=== PATIENT | female | born 1930 | race Caucasian/White ===

== ENCOUNTER 2016-10-23 02:59 | Observation (INO) | payer OTHER ==
--- NOTE | ~2016-10-23 | EKG ---
PATIENT: VALE LEES UNIT #: [id number] Ventricular Rate: 101 BPM Atrial Rate: 101 BPM P-R Interval: 214 ms QRS Duration: 102 ms Q-T Interval: 372 ms QTC Calculation(Bezet): 482 ms P [place]: 49 degrees Calculated R [place]: -7 degrees Calculated T [place]: 42 degrees Diagnosis Line: Sinus tachycardia with 1st degree A-V block Diagnosis Line: Nonspecific ST and T wave abnormality Diagnosis Line: Abnormal ECG Baseline wander Diagnosis Line: No previous ECGs available Diagnosis Line: Confirmed by ELIN MOJICA MD ([id number]) on 10/24/2016 Diagnosis Line: 11:14:54 AM INTERPRETING MD: YUNIOR OSEI
--- NOTE | ~2016-10-23 | CR72 ---
[facility] A Service of [facility] RADIOLOGY TEXT RESULTS PATIENT: VALE LEES LOCATION: [facility] 335- : 29 UNIT #: [id number] AGE: [address]: Denice Solis MD SEX: F ORDER DR: [id number] [facility] [address]. [place], [place] [address] [id number] MR#: [id number] Acc #: [id number] NAME: VALE LEES. : 1930 SEX: F STUDY DATE/TIME: 10/23/2016 2:58 [facility]: [facility] STUDY DESCRIPTION: CR Chest Single View Portable Attending Physician: Denice Solis M.D. Ordering Physician: Candido Rossi M.D. Primary Care Physician: Danika Milton M.D. MEDICAL IMAGING REPORT This report is preliminary unless electronic signature is present EXAM Portable AP view of the chest. COMPARISON February 18, 2008. INDICATIONS 86-year-old female with dyspnea and body aches for 2 days. FINDINGS There is grossly stable marked dextroscoliosis of the thoracic spine. There is no evidence of pneumothorax, pleural effusion or acute airspace disease. A skin fold artifact is noted over the left lower chest. There is apparent dense calcification of the mitral valve annulus. There are calcified granulomas in the left hilar region. Normal heart size. 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 There is mild levoscoliosis of the upper lumbar spine. IMPRESSION 1. No acute radiographic abnormality of the chest. 2. Dense calcifications of the mitral valve annulus. 3. Scoliosis. Chronic dysmorphic appearance of the humeral heads, perhaps reflecting avascular necrosis Dictated by... Alvarez Whaley M.D. THIS IS AN ELECTRONICALLY VERIFIED REPORT Alvarez Whaley M.D. at 10/25/2016 7:03 AM Marlena TD: 10/23/2016 09:15 JOB #: [id number] [facility] A Service of [facility] RADIOLOGY TEXT RESULTS PATIENT: VALE LEES LOCATION: [facility] 335-01 : 29 UNIT #: [id number] AGE: [address]: Denice Solis MD SEX: F ORDER DR: MEDICAL IMAGING REPORT COPY
--- NOTE | ~2016-10-23 | DS ---
Unit #: [id number] #: [id number] Patient: VALE LEES [id number] [address] [place], [place] [address] [id number] I MR#: [id number] NAME: VALE LEES. ROOM: 335 Age: 86 Sex: F Admission Date: 10/23/2016 : 1930 Discharge Date: 10/24/2016 Attending Physician: Denice Solis M.D. Primary Care Physician: Danika Milton M.D. DISCHARGE SUMMARY PRINCIPAL DIAGNOSES 1. Hyponatremia/hypovolemic. 2. Acute hypoxic respiratory failure, now resolved. 3. Acute bronchitis. 4. Bronchospasm. 5. Omxi-oj-dyavmcoz mitral regurgitation. 6. Lnqt-kw-ghjitamb tricuspid regurgitation. 7. Hypertension. 8. White-coat hypertension. 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 PROCEDURES 1. Chest x-ray on October 23, 2016, with dense calcifications of mitral valve annulus. No other acute findings noted. 2. A two-dimensional echocardiogram on October 23, 2016, with ejection fraction of 50% to 55%. The patient had zmox-pr-cmalgbom tricuspid regurgitation and atmp-fe-pyztcnzk mitral regurgitation. Normal right ventricular systolic pressure of 40 mmHg and normal left ventricular size. CLINICAL HISTORY AND HOSPITAL COURSE Ms. Lees is a very nice 86-year-old female, who presents to the emergency department with shortness of breath and cough. Please refer to H and P for further details. The patient was found to be mildly hypoxic in the emergency department with O2 saturations in the mid 80s. Sodium was also found to be low at 123. The patient was subsequently admitted. In regard to patient's respiratory failure, this resolved after a nebulizer treatment. Chest x-ray was unremarkable. She was placed on low-dose IV steroids in addition to empiric antibiotics and today oxygen saturations have completely normalized and she has had no evidence of wheezing. We are going to transition to oral steroids and continue doxycycline as an outpatient. In regard to patient's hyponatremia, she was placed on IV fluids and on day of discharge, sodium has corrected from 123 to 133. She does not appear to be drinking excessive amounts of fluid at home after discussion with son and I suspect her hyponatremia was secondary to poor solute intake given she felt poorly. This can be followed up by Dr. Milton as an outpatient. Unit #: [id number] #: [id number] Patient: VALE LEES The patient is otherwise clinically stable and can be discharged home today. The patient has had some significantly elevated blood pressures while hospitalized here. I did check orthostatics and while not orthostatic, the patient does have a drop in systolic blood pressure upon sitting to standing. I hear her sitting blood pressure is 175/77 and standing was 159/91. The patient's son informs me, however, patient has significant white coat hypertension and this may be a contributing factor. Thus, I am going to not make any adjustments in her blood pressure meds while here. Given her advanced age, this would also be a contributing factor. This can be followed up by Dr. Milton. DISCHARGE CONDITION Stable. DISCHARGE STATUS Discharge to home. DISCHARGE MEDICATIONS 1. Doxycycline 100 mg p.o. b.i.d. for five days. 2. Prednisone 10 mg tablets four tablets daily for two days, three tablets for two days, two tablets for two days, one tablet for two days, then discontinue. 3. Ventolin inhaler one to two puffs every four hours p.r.n. for shortness of breath. 4. Hydromet syrup 5 mL p.o. q.6 hours p.r.n. for cough. 5. Atenolol 25 mg b.i.d. DISCHARGE INSTRUCTIONS 1. The patient was instructed to follow a heart healthy diet. 2. She can increase her activity as tolerated, and she will continue to use her walker at all times. FOLLOWUP The patient will follow up with Dr. Milton in two weeks, can re-evaluate blood pressure at that time and recheck sodium level. Dictated by... Denice Solis M.D. SERGEI/isa TD: 10/25/2016 09:19 JOB #: [id number] DISCHARGE SUMMARY X Denice Solis MD DISCHARGE SUMMARY
--- NOTE | ~2016-10-23 | HP ---
Unit #: [id number] #: [id number] Patient: VALE LEES [id number] [address] [place], [place] [address] [id number] E MR#: [id number] NAME: VALE LEES ROOM: Age: 86 Sex: F Admission Date: 10/23/2016 : 1930 Attending Physician: Candido Rossi M.D. Primary Care Physician: Danika Milton M.D. HISTORY AND PHYSICAL CHIEF COMPLAINT Bronchitis, acute respiratory failure, and hyponatremia. HISTORY This pleasant, 86-year-old female with hypertension and DJD is admitted for hyponatremia. Patient states that she was well until about two weeks prior to admission when she developed a nonproductive deep cough. She saw her primary care physician again yesterday and was given prescriptions for amoxicillin, Ventolin inhaler, and a cough syrup. She has been nauseous for the past two days, only drinking water. States that last evening she awoke choking with nausea and shaking. EMS was called and the patient was noted to have an O2 sat in the mid 80s. She was noted to have bronchospasm and was better after a nebulizer was given. Current chest x-ray is negative, but her sodium is 123. She does not take diuretics. In the ER, she was given 60 mg of prednisone. PAST MEDICAL HISTORY 1. Hypertension. 2. DJD. 3. Left total hip replacement. 4. Left total knee replacement. 5. Appendectomy. ALLERGIES To sulfa. HOME MEDICATIONS 1. Ventolin inhaler. 2. Hydromet cough syrup. 3. Amoxicillin 250 mg t.i.d. started yesterday. 4. Atenolol 25 mg b.i.d. FAMILY HISTORY Noncontributory given patient's age. SOCIAL HISTORY The patient lives with her son. She is a lifelong nonsmoker, seldom drinks alcohol. REVIEW OF SYSTEMS Notable for a cough and shortness of breath last evening after choking episode, hypertension, abovementioned surgeries, nausea, and poor p.o. Unit #: [id number] #: [id number] Patient: VALE LEES intake. All other systems were reviewed and are negative. PHYSICAL EXAMINATION GENERAL APPEARANCE: Pleasant, 86-year-old female who is coughing frequently, but otherwise is in no acute distress. VITAL SIGNS: Temperature 97.7; pulse 92; respirations 16; initial blood pressure 202/77, but current blood pressure is 145/66; and O2 saturation is 98% on room air. HEENT: Eyes: PERRLA. Extraocular muscles are intact. Pharynx: Benign. NECK: Supple without adenopathy or thyromegaly. CHEST: Clear. CARDIAC: Normal S1 and S2 with a soft systolic murmur. ABDOMEN: Bowels sounds are present. No hepatosplenomegaly, tenderness, or masses. EXTREMITIES: Without C, C, or E. Pedal pulses are present. NEUROLOGIC: Patient is awake, alert, and oriented. Cranial nerves are intact. Equal strength throughout. DIAGNOSTIC STUDIES LABORATORY: Hematocrit 37.9 and normal white count and platelet count. Negative cardiac markers. SMA-12: Glucose 148, sodium 123, chloride 90, CO2 21. BNP 131. IMAGING: Chest x-ray: No acute disease. CARDIOVASCULAR: EKG: Sinus tachycardia, rate 101. Left axis deviation. Somewhat poor R wave progression. First degree AV block noted. ASSESSMENT 1. Bronchitis with bronchospasm and acute hypoxic respiratory failure, now better after a nebulizer was given by ambulance. 2. Likely hypovolemic hyponatremia. Patient has been drinking water, but not taking p.o. for the past two days. 3. Hypertension. PLANS 1. Doxycycline, steroid taper, and continue Ventolin and cough suppressant. 2. Normal saline IV fluids and check TSH and urine sodium. 3. DVT prophylaxis. 4. Will obtain an echo given murmur. 5. Further workup depending on above. 6. 1. Dictated by Ivette Gates/pc TD: 10/23/2016 06:04 JOB #: [id number] Unit #: [id number] #: [id number] Patient: VALE LEES HISTORY AND PHYSICAL X Arlin Devine MD HISTORY AND PHYSICAL
[~2016-10-23 02:59] MED LIST: ASPIRIN PO; DARVOCET-N 1001 TAB PO; PARAFON FORTE500 MG PO; [UNRECOGNIZED DRUG - OTHER] PO
[2016-10-23] MEDS ORDERED: TENORMIN25 MG PO (03:02)
[2016-10-23] MEDS ORDERED: ALBUTEROL17 GM INH (03:02)
[2016-10-23] MEDS ORDERED: HYDROMET SYRUP480 ML PO (03:03)
[2016-10-23] MEDS ORDERED: AMOXICILLIN250 MG PO (03:03)
[2016-10-23 03:06] LABS: BASOPHIL# 0.1 X10e3 (0-0.3); BASOPHIL% 0.8 % (0-2.5); DIFF IND NO; EOSINOPHIL# 0.2 X10e3 (0-0.7); EOSINOPHIL% 2.1 % (0.0-7.0); HEMATOCRIT 37.9 % (35.0-45.0); HEMOGLOBIN 12.8 gm/dL (12.0-16.0); LYMPHOCYTE% 21.7 % (17.0-45.0); MEAN CELL VOLUME 89.3 FL (83-96); MEAN CORPUSCULAR HEMOGLOBIN 30.1 PG (28-34); MEAN CORPUSCULAR HGB CONC 33.7 g/dL (30-36); MEAN PLATELET VOLUME 8.3 FL (6.5-11.5); MONOCYTE# 0.9 X10e3 (0-1.0); MONOCYTE% 9.7 % (3.0-12.0); NEUTROPHIL% 65.7 % (40-75); PLATELET COUNT 339 X10e3 (140-420); RED BLOOD COUNT 4.25 X10e (3.90-5.30); RED CELL DISTRIBUTION WIDTH 13.8 % (11.0-15.5); WHITE BLOOD COUNT 9.1 X10e3 (4.0-10.5)
[2016-10-23 03:15] LABS: POC - CKMB 3.3 ng/mL (0.0-7.9); POC - TROPONIN <0.05 ng/mL (<=0.05)
[2016-10-23 03:40] LABS: BLOOD UREA NITROGEN 13 mg/dL (9-23); BUN/CREATININE RATIO 18.57; CALCIUM SERUM 8.8 mg/dL (8.4-10.2); CARBON DIOXIDE 21 mmol/L (22-31); CHLORIDE 90 mmol/L (100-111); CREATININE SERUM 0.7 mg/dL (0.6-1.4); GLOM FILT RATE Estimated ABOVE60 mL/min (>60); GLUCOSE FASTING 148 mg/dL (70-110); POTASSIUM 3.6 mmol/L (3.5-5.1)
[2016-10-23 03:43] LABS: SODIUM 123 mmol/L (135-145)
[2016-10-23 18:45] LABS: BLOOD UREA NITROGEN 8 mg/dL (9-23); CALCIUM SERUM 8.4 mg/dL (8.4-10.2); CARBON DIOXIDE 23 mmol/L (22-31); CHLORIDE 101 mmol/L (100-111); CREATININE SERUM 0.5 mg/dL (0.6-1.4); GLOM FILT RATE Estimated ABOVE60 mL/min (>60); GLUCOSE FASTING 200 mg/dL (70-110); POTASSIUM 4.1 mmol/L (3.5-5.1); SODIUM 127 mmol/L (135-145)
[2016-10-24 00:35] LABS: INFLUENZA A NEG (NEG); INFLUENZA B NEG (NEG)
[2016-10-24 06:15] LABS: BLOOD UREA NITROGEN 9 mg/dL (9-23); CALCIUM SERUM 9.1 mg/dL (8.4-10.2); CARBON DIOXIDE 22 mmol/L (22-31); CHLORIDE 103 mmol/L (100-111); CREATININE SERUM 0.5 mg/dL (0.6-1.4); GLOM FILT RATE Estimated ABOVE60 mL/min (>60); GLUCOSE FASTING 163 mg/dL (70-110); POTASSIUM 4.1 mmol/L (3.5-5.1); SODIUM 133 mmol/L (135-145)
[2016-10-24] MEDS ORDERED: VIBRAMYCIN100 M1 PO (14:08)
[2016-10-24] MEDS ORDERED: PREDNISONE10 MG PO (14:14)
== END 2016-10-24 14:58 | disposition home or self-care (01) ==
LOC: CED 02:59 → CEDOF 05:20 → C3A PCU 09:10
PROVIDERS: Emergency Medicine; Internal Medicine
DX: E87.1 Hypo-osmolality and hyponatremia (principal); E86.1 Hypovolemia; J96.01 Acute respiratory failure with hypoxia; J20.9 Acute bronchitis, unspecified; I08.1 Rheumatic disorders of both mitral and tricuspid valves; I10 Essential (primary) hypertension; Z23 Encounter for immunization; Z96.642 Presence of left artificial hip joint; Z96.652 Presence of left artificial knee joint; Z88.2 Allergy status to sulfonamides; M41.9 Scoliosis, unspecified
CPT/HCPCS: 36415; 71010; 80048; 82553; 83880; 84300; 84443; 84484; 85025; 87804; 90732; 93005; 93306; 94640; 94664; 94760; 96361; 96365; 96374; 96375; 96376; 97162; 97165; 99285; G0009; G0378; G8978-GP; G8979-GP; G8980-GP; G8987-GO; G8988-GO; G8989-GO; J1650; J2405; J2920

== ENCOUNTER 2016-11-23 03:07 | Emergency (ER) | payer OTHER ==
--- NOTE | ~2016-11-23 | EKG ---
PATIENT: VALE LEES UNIT #: [id number] Ventricular Rate: 82 BPM Atrial Rate: 82 BPM P-R Interval: 190 ms QRS Duration: 114 ms Q-T Interval: 430 ms QTC Calculation(Bezet): 502 ms P [place]: 23 degrees Calculated R [place]: -21 degrees Calculated T [place]: 60 degrees Diagnosis Line: Normal sinus rhythm Diagnosis Line: Left ventricular hypertrophy with repolarization Diagnosis Line: abnormality Diagnosis Line: Prolonged QT Diagnosis Line: Abnormal ECG Diagnosis Line: When compared with ECG of 23-OCT-2016 03:03, Diagnosis Line: No significant change was found Diagnosis Line: Confirmed by ELIN MOJICA MD ([id number]) on 12/04/2016 Diagnosis Line: 7:56:30 PM INTERPRETING MD: YUNIOR OSEI
--- NOTE | ~2016-11-23 | CR173 ---
[facility] A Service of [facility] RADIOLOGY TEXT RESULTS PATIENT: VALE LEES LOCATION: SED : 29 UNIT #: [id number] AGE: [address]: Tato Mahajan MD SEX: F ORDER DR: [id number] [place] [id number] E MR#: [id number] Acc #: [id number] NAME: VALE LEES : 1930 SEX: F STUDY DATE/TIME: 11/23/2016 2:56 UNIT: SED ROOM: STUDY DESCRIPTION: CR Knee 3 Views Rt Attending Physician: Tato Mahajan M.D. Ordering Physician: Tato Mahajan M.D. Primary Care Physician: Danika Milton M.D. MEDICAL IMAGING REPORT This report is preliminary unless electronic signature is present. EXAM Right knee, 11/23/2016 HISTORY 86-year-old female with right leg pain status post fall tonight. COMPARISON None FINDINGS 3 views of the right knee demonstrate a displaced spiral oblique fracture of the distal femoral metaphysis. There is at least 2.8 cm posterior displacement of the distal fracture fragment. No evidence of articular surface disruption. There are markedly advanced degenerative changes noted throughout the right knee. Soft tissue swelling around the right knee. IMPRESSION 1. Displaced spiral oblique fracture of the distal femoral metaphysis. There is at least 2.8 cm posterior displacement of the distal fragment. No articular surface disruption or dislocation. 2. Markedly advanced tricompartmental right knee arthrosis. Dictated by... Adam Diaz M.D. THIS IS AN ELECTRONICALLY VERIFIED REPORT Adam Diaz M.D. at 11/23/2016 11:27 PM AMANDEEP/graham TD: 11/23/2016 15:06 JOB #: [id number] [facility] A Service [facility] RADIOLOGY TEXT RESULTS PATIENT: VALE LEES LOCATION: SED : 29 UNIT #: [id number] AGE: [address]: Tato Mahajan MD SEX: F ORDER DR: MEDICAL IMAGING REPORT Page 1 of 1
--- NOTE | ~2016-11-23 | CR72 ---
[facility] A Service of [facility] RADIOLOGY TEXT RESULTS PATIENT: VALE LEES LOCATION: SED : 29 UNIT #: [id number] AGE: [address]: Tato Mahajan MD SEX: F ORDER DR: [id number] [place] [id number] E MR#: [id number] Acc #: [id number] NAME: VALE LEES : 1930 SEX: F STUDY DATE/TIME: 11/23/2016 2:56 UNIT: SED ROOM: STUDY DESCRIPTION: CR Chest Single View Portable Attending Physician: Tato Mahajan M.D. Ordering Physician: Tato Mahajan M.D. Primary Care Physician: Danika Milton M.D. MEDICAL IMAGING REPORT This report is preliminary unless electronic signature is present. EXAM Portable chest 11/23/2016 HISTORY 86-year-old female with shortness of air and cough for 3 days. COMPARISON Chest 10/23/2016. FINDINGS Frontal chest demonstrates clear lungs. No pleural effusion or pneumothorax. Stable mild cardiomegaly. Mediastinum and pulmonary vasculature are unremarkable. Chronic advanced bilateral glenohumeral arthrosis. IMPRESSION Stable mild cardiomegaly. No other acute chest findings. Dictated by... Adam Diaz M.D. THIS IS AN ELECTRONICALLY VERIFIED REPORT Adam Diaz M.D. at 11/23/2016 11:27 PM AMANDEEP/shawna TD: 11/23/2016 15:06 JOB #: [id number] MEDICAL IMAGING REPORT Page 1 of 1
--- NOTE | ~2016-11-23 | CR151 ---
[facility] A Service of [facility] RADIOLOGY TEXT RESULTS PATIENT: VALE LEES LOCATION: SED : 29 UNIT #: [id number] AGE: [address]: Tato Mahajan MD SEX: F ORDER DR: [id number] [place] [id number] E MR#: [id number] Acc #: [id number] NAME: VALE LEES : 1930 SEX: F STUDY DATE/TIME: 11/23/2016 2:56 UNIT: SED ROOM: STUDY DESCRIPTION: CR Hip Min 2 Views Rt Attending Physician: Tato Mahajan M.D. Ordering Physician: Tato Mahajan M.D. Primary Care Physician: Danika Milton M.D. MEDICAL IMAGING REPORT This report is preliminary unless electronic signature is present. EXAM Right hip 11/23/2016 HISTORY 86-year-old female with right hip pain status post fall tonight. COMPARISON Right hip 02/18/2008. FINDINGS 3 views of the right hip demonstrate no evidence of a displaced fracture or dislocation. Bony pelvis appears intact. Total left hip arthroplasty noted with left acetabular protrusio. Sacrum and SI joints are grossly intact. Rsmp-ky-orwvxmfq degenerative change of the right hip. IMPRESSION 1. No evidence of a displaced fracture or dislocation. Khru-bx-wcqrlnfi right hip arthrosis. 2. Total left hip arthroplasty. Dictated by... Adam Diaz M.D. THIS IS AN ELECTRONICALLY VERIFIED REPORT Adam Diaz M.D. at 11/23/2016 11:27 PM AMANDEEP/shawna TD: 11/23/2016 15:04 JOB #: [id number] MEDICAL IMAGING REPORT [facility] A Service [facility] RADIOLOGY TEXT RESULTS PATIENT: VALE LEES LOCATION: SED : 29 UNIT #: [id number] AGE: [address]: Tato Mahajan MD SEX: F ORDER DR: Page 1 of 1
[2016-11-23 02:56] LABS: BASOPHIL# 0.1 X10e3 (0-0.3); BASOPHIL% 0.5 % (0-2.5); EOSINOPHIL# 0.3 X10e3 (0-0.7); EOSINOPHIL% 2.4 % (0.0-7.0); HEMOGLOBIN 12.5 gm/dL (12.0-16.0); LYMPHOCYTE# 1.1 X10e3 (1.0-3.5); LYMPHOCYTE% 10.4 % (17.0-45.0); MEAN CELL VOLUME 88.3 FL (83-96); MEAN CORPUSCULAR HEMOGLOBIN 30.8 PG (28-34); MEAN CORPUSCULAR HGB CONC 34.8 g/dL (30-36); MEAN PLATELET VOLUME 7.7 FL (6.5-11.5); MONOCYTE# 0.9 X10e3 (0-1.0); MONOCYTE% 8.2 % (3.0-12.0); NEUTROPHIL# 8.2 X10e3 (1.5-7.1); NEUTROPHIL% 78.5 % (40-75); PLATELET COUNT 401 X10e3 (140-420); RED BLOOD COUNT 4.08 X10e (3.90-5.30); WHITE BLOOD COUNT 10.5 X10e3 (4.0-10.5)
[2016-11-23 02:57] LABS: DIFF IND NO
[2016-11-23 03:03] LABS: INR 1.2; PROTHROMBIN TIME (PATIENT) 14.1 SECONDS (9.5-12.4)
[2016-11-23 03:07] LABS: POC - CKMB 4.5 ng/mL (0.0-7.9); POC - TROPONIN <0.05 ng/mL (<=0.05)
[~2016-11-23 03:07] MED LIST changes: +ALBUTEROL17 GM INH; +AMOXICILLIN250 MG PO; +HYDROMET SYRUP480 ML PO; +PREDNISONE10 MG PO; +TENORMIN25 MG PO; +VIBRAMYCIN100 M1 PO
[2016-11-23 03:10] LABS: PARTIAL THROMBOPLASTIN TIME 29.1 SECONDS (25.6-38.1)
[2016-11-23 03:16] LABS: ALBUMIN SERUM 3.8 g/dL (3.5-5.0); CALCIUM SERUM 8.5 mg/dL (8.4-10.2); CREATININE SERUM 0.5 mg/dL (0.6-1.4); POTASSIUM 3.3 mmol/L (3.5-5.1); PROTEIN TOTAL SERUM 5.7 g/dL (6.0-8.3)
== END 2016-11-23 04:50 | disposition hospice, home (50) ==
LOC: SED 03:07
DX: S72.401A Unspecified fracture of lower end of right femur, initial encounter for closed fracture (principal); Z88.2 Allergy status to sulfonamides; W01.0XXA Fall on same level from slipping, tripping and stumbling without subsequent striking against object, initial encounter; Y92.009 Unspecified place in unspecified non-institutional (private) residence as the place of occurrence of the external cause; I10 Essential (primary) hypertension; E87.1 Hypo-osmolality and hyponatremia
CPT/HCPCS: 71010; 73502; 73562; 80053; 82553; 83874; 84484; 85025; 85610; 85730; 93005; 96361; 96374; 96375; 99285; J1170; J2270; J2405

== ENCOUNTER → 2016-12-31 | Outpatient (CLI) | payer OTHER ==
[~2016-12-31] MED LIST changes: +ATIVAN0.5 MG PO; +CLARITIN10 M2 PO; +CLARITIN10 M3 PO; +COUMADIN4 MG PO; +DOK100 MG PO; +FEOSOL PO; +FERROUS GLUCON324 MG PO; +MULTI VITAMIN1 EACH PO; +NITROFURANTOIN100 M3 PO; +OMNICEF300 M1 PO; +OMNICEF300 MG PO; +ONDANSETRON HCL4 M1 PO; +PHENAZOPYRIDINE95 MG PO; +PROTONIX PO; +SENNA8.6 M1 PO; +TRAMADOL HCL50 M1 PO; +WARFARIN SODIUM2 M1 PO
--- NOTE | ~2016-12-31 | CT107 ---
[facility] A Service of [facility] RADIOLOGY TEXT RESULTS PATIENT: VALE LEES LOCATION: [facility] : 29 UNIT #: [id number] AGE: [address]: Generic Doctor NOT IN SYSTEM SEX: F ORDER DR: [id number] [place] [id number] O MR#: [id number] Acc #: [id number] NAME: VALE LEES : 1930 SEX: F STUDY DATE/TIME: 12/31/2016 8:54 UNIT: SRAD ROOM: STUDY DESCRIPTION: CT Pelvis Wo Cont Attending Physician: Generic Doctor Not In System Referring Physician: Generic Doctor Not In System Ordering Physician: Danika Milton M.D. Primary Care Physician: Danika Milton M.D. MEDICAL IMAGING REPORT This report is preliminary unless electronic signature is present. EXAM CT pelvis INDICATIONS Soft tissue mass in the right buttocks. Chronic immobility and bedridden. TECHNIQUE CT of the pelvis without contrast. Coronal and sagittal reconstructions were obtained. The CT exam was performed with one or more of the following radiation dose reduction techniques: automatic exposure control, adjustment of mA and/or kV according to patient size, and iterative reconstruction. COMPARISON None available. FINDINGS In the superficial soft tissues overlying the superior right iliac bone, there is a area of dystrophic calcification measuring 4.8 x 1.8 x 2-8 cm. This is just below the skin surface. This is consistent with a benign granuloma, usually from injection sites. There is a smaller calcified granuloma in the right buttocks as well. This measures less than a cm. Otherwise, there is no suspicious mass or lesion identified within the superficial soft tissues of the right buttocks. There is similar dystrophic calcification/injection granuloma in the superior left buttocks. This is more linear in configuration measuring 5.1 x 0.8 x 1.9 cm. There are several smaller injection granuloma in the left buttocks as well. [facility] A Service [facility] RADIOLOGY TEXT RESULTS PATIENT: VALE LEES LOCATION: [facility] : 29 UNIT #: [id number] AGE: [address]: Liliana Doctor NOT IN SYSTEM SEX: F ORDER DR: There is generalized atrophy of the gluteal musculature and pelvic musculature. There has been prior left total hip arthroplasty. Patient has acetabular protrusion. There is some loosening around the acetabular component. The acetabular screws are proud with one of the screws abutting the left external iliac artery. There are no acute osseous abnormalities. No enlarged pelvic or inguinal lymph nodes. The appendix is normal. Bladder is decompressed. IMPRESSION 1. There are benign calcified injection granuloma in both the superior right buttocks and the superior left buttocks. The right buttock calcifications are more superficial and could be easily palpable. 2. No suspicious or aggressive findings are identified in the soft tissues of the right buttocks. 3. Generalized atrophy of the pelvic musculature and gluteal musculature. 4. The patient is status post left total hip arthroplasty. There is acetabular protrusion with lucency surrounding the acetabular component. This finding that can be associated with hardware loosening. This appearance is unchanged from prior radiographs. Dictated by... Bruce Jose M.D. THIS IS AN ELECTRONICALLY VERIFIED REPORT Bruce Jose M.D. at 01/01/2017 2:46 PM ILYA/lakesha TD: 01/01/2017 11:13 JOB #: [id number] MEDICAL IMAGING REPORT Page 1 of 1
== END | disposition home or self-care (01) ==
LOC: SCT 09:00 → SRAD 09:22
DX: R22.2 Localized swelling, mass and lump, trunk (principal); L92.8 Other granulomatous disorders of the skin and subcutaneous tissue; N81.84 Pelvic muscle wasting; M24.7 Protrusio acetabuli; Z96.642 Presence of left artificial hip joint
CPT/HCPCS: 72192

== ENCOUNTER 2017-02-18 18:39 | Observation (INO) | payer OTHER ==
--- NOTE | ~2017-02-18 | DS ---
Unit #: [id number] #: [id number] Patient: VALE LEES [id number] [address] [address] [id number] I MR#: [id number] NAME: VALE LEES ROOM: 217 Age: 86 Sex: F Admission Date: 02/19/2017 : 1930 Discharge Date: 02/20/2017 Attending Physician: Denice Solis M.D. Primary Care Physician: Danika Milton M.D. DISCHARGE SUMMARY PRINCIPAL DIAGNOSES 1. Sepsis secondary to Gram-negative jorje catheter-associated urinary tract infection with pending urine culture. 2. Mild iron deficiency anemia: Discharge hemoglobin 8.4. 3. Stage 1 coccyx and sacral pressure ulcer present upon admission. 4. Thrombocytosis secondary to iron deficiency. 5. Hypokalemia. 6. Hypomagnesemia. 7. Recent history of left leg deep venous thrombosis, on therapeutic Coumadin. 8. Chronic immobility. 9. Chronic indwelling Yang catheter. 10. Mild to moderate mitral regurgitation. 11. Mild to moderate tricuspid regurgitation. CONSULTANTS None. PROCEDURES 1. Left lower extremity venous Doppler which is negative for DVT. 2. Chest x-ray on February 18, 2017, with no acute findings. 3. Osteopenia is noted. CLINICAL HISTORY/HOSPITAL COURSE Ms. Lees is an 86-year-old female brought from home after developing chills and myalgias despite Macrodantin for treatment of a urinary tract infection. In the emergency department, she was found to have mild elevation in temperature and she was also found to have leukocytosis. She was also hypokalemic. The patient was subsequently admitted. The patient was placed on empiric Rocephin. Her fevers have resolved and on day of discharge her leukocytosis has also resolved. Urine culture is currently growing 50,000 to 60,000 Gram-negative rods but, again, identification is pending. Given her clinical improvement, I am going to change her to Omnicef and I will follow up urine culture after discharge. The patient is also, again, hypokalemic but this has resolved after replacement. The patient was also found to have anemia with a normal vitamin B12 level but mild iron deficiency with an iron level of 28. I am going to place her on some iron supplementation just once daily and hemoglobin can be followed up as an outpatient. Unit #: [id number] #: [id number] Patient: VALE LEES The patient is also concerned about increasing swelling of the left lower extremity given she recently had DVT. Ultrasound did not reveal any recurrent DVT. I suspect her swelling may be chronic secondary to her prior DVT and this can just be followed up as an outpatient. The patient will be discharged home later today. I will note, her Yang catheter was changed on day of discharge. DISCHARGE CONDITION Stable. DISCHARGE STATUS Discharge to home. Will reinitiate home health for PT, OT and INR monitoring. DISCHARGE MEDICATIONS 1. Ferrous gluconate 324 mg daily with one refill. 2. Omnicef 300 mg p.o. b.i.d. for another five days. 3. Coumadin 2 mg alternating with 4 mg every third day. Goal INR is 2-3. 4. Zofran 4 mg p.o. four times daily p.r.n. for nausea. 5. Claritin 10 mg daily p.r.n. for allergies. 6. Atenolol 25 mg b.i.d. 7. Senna 8.6 mg daily p.r.n. for constipation. 8. Phenazopyridine 95 mg b.i.d. p.r.n. for urinary pain. 9. Daily multivitamin. 10. Tramadol 50 mg p.o. four times daily p.r.n. for pain. DISCHARGE INSTRUCTIONS The patient was instructed to follow a heart healthy diet. She can increase her activity as tolerated but, again, she is essentially immobile. She is to try to take pressure off that coccyx as tolerated and turn in the bed every two hours. She should have her Yang catheter changed again monthly. FOLLOWUP The patient needs follow up INR in one week with the results to Dr. Milton. She will follow up with Dr. Milton in two weeks. Dictated by... Denice Solis M.D. SERGEI/ronald TD: 02/21/2017 10:53 JOB #: [id number] Unit #: [id number] #: [id number] Patient: VALE LEES DISCHARGE SUMMARY Page 1 of 1 X Denice Solis MD DISCHARGE SUMMARY
--- NOTE | ~2017-02-18 | CR72 ---
[facility] A Service of [facility] RADIOLOGY TEXT RESULTS PATIENT: VALE LEES LOCATION: [facility] 217-01 : 29 UNIT #: [id number] AGE: [address]: Denice Solis MD SEX: F ORDER DR: [id number] [facility] [address] [place], [place] [address] [id number] I MR#: [id number] Acc #: [id number] NAME: VALE LEES : 1930 SEX: F STUDY DATE/TIME: 02/18/2017 20:39 [facility] 40105 STUDY DESCRIPTION: CR Chest Single View Portable Attending Physician: Arlin Devine M.D. Ordering Physician: Harinder Mosquera M.D. Primary Care Physician: Danika Milton M.D. MEDICAL IMAGING REPORT This report is preliminary unless electronic signature is present EXAM Portable chest 1 view 02/18/17. CLINICAL HISTORY Short of air and cough today. FINDINGS There is no consolidation or effusion or pneumothorax. No acute pulmonary process is identified. Osteopenia and chronic changes in both shoulders and scoliosis are redemonstrated. Dictated by... Garrett Rueda M.D. THIS IS AN ELECTRONICALLY VERIFIED REPORT Garrett Rueda M.D. at 02/21/2017 5:34 PM TEV/bd TD: 02/19/2017 06:17 JOB #: [id number] MEDICAL IMAGING REPORT Page 1 of 1 COPY
--- NOTE | ~2017-02-18 | HP ---
Unit #: [id number] #: [id number] Patient: VALE LEES [id number] [address] [place], [place] [address] [id number] I MR#: [id number] NAME: VALE LEES ROOM: 95992 Age: 86 Sex: F Admission Date: 02/19/2017 : 1930 Attending Physician: Arlin Devine M.D. Primary Care Physician: Danika Milton M.D. HISTORY AND PHYSICAL CHIEF COMPLAINT Urinary tract infection with chronic indwelling Yang catheter, hypokalemia. HISTORY This pleasant 86-year-old female with DJD, recent ORIF right femur fracture and on anticoagulation for left leg DVT, is admitted for a urinary tract infection. The patient fell in November, was admitted to [facility], and underwent ORIF of a right femur fracture. Shortly afterwards, she developed a left leg DVT requiring anticoagulation. She required rehab, and was discharged home one and a half months ago. Has been immobilized since her discharge, unable to ambulate despite home physical therapy. Because of her immobilization, and sacral decub, Yang catheter was placed. She has required antibiotics for recurrent urinary tract infections, and Macrodantin was started two days ago. However, she developed chills, vaginal discomfort, myalgias despite the Macrodantin. She was told to be evaluated in the emergency department. Urine shows significant pyuria. Her white blood count is 14.8, and her potassium is low at 2.8. Rectal temperature is 100.2. In the ER, she was given [place], Tylenol, bolused with IV fluids, 1 g of Rocephin and 60 mEq of potassium. Her hemoglobin is 9.2, down from 12.5 in November, but she denies melena or hematochezia. MCV is normal. PAST MEDICAL HISTORY 1. Echo 10/2016, revealing mild to moderate MR and TR with ejection fraction 50% to 55%. 2. Essential hypertension, no longer requiring antihypertensive medications. 3. DJD. 4. Left total hip replacement. 5. Left total knee replacement. 6. Appendectomy. 7. Fall with right femur surgery requiring ORIF. The patient developed a left leg DVT sometime afterward and is chronically anticoagulated. ALLERGIES Sulfa. HOME MEDICATIONS 1. Multivitamin daily. 2. Claritin 10 mg daily. 3. Senna tablet daily. Unit #: [id number] #: [id number] Patient: VALE LEES 4. Azo p.r.n. 5. Ultram 50 mg q.6 hours p.r.n. 6. The patient was prescribed a tiny dose of Ativan which she has not taken as of yet. 7. Macrodantin 100 mg b.i.d., started two days ago. 8. Coumadin 2 mg every day, except for the third day when patient takes 4 mg Zofran p.r.n. FAMILY HISTORY Noncontributory given patient's age. SOCIAL HISTORY The patient lives with her son. Lifelong nonsmoker, does not drink alcohol. REVIEW OF SYSTEMS Notable for left leg pain, swelling, above mentioned surgery, arthritis, myalgias, chills, vaginal discomfort, immobilization syndrome. All other systems were reviewed and are otherwise negative. PHYSICAL EXAMINATION GENERAL APPEARANCE: Pleasant, young appearing 86-year-old female, currently in no acute distress. VITAL SIGNS: Temperature 98.1, pulse 109, respirations 16, initial blood pressure 96/65, O2 saturation 92% on room air. HEENT: Eyes PERRLA. Extraocular muscles are intact. Pharynx is benign. NECK: Supple without adenopathy or thyromegaly. CHEST: Clear. CARDIAC: Normal S1 and S2. ABDOMEN: Bowel sounds are present. No hepatosplenomegaly, tenderness or masses. EXTREMITIES: Notable for left leg edema and a small abrasion noted over the milton of the left leg. Pedal pulses are diminished. NEUROLOGIC: The patient is awake, alert. She is fairly oriented. Her cranial nerves are intact. She has equal strength throughout but is quite weak on exam. DIAGNOSTIC STUDIES LABORATORY: Admission labs - hematocrit is 27.7, down from 36 in November. White blood count is 14.8, platelet count is 547. MCV is 94. INR is 2.3. SMA-12 - glucose 112, sodium 134, potassium 2.8, magnesium 1.3, albumin 3.4. Lactic acid normal. Cardiac markers negative. Urinalysis - positive leukocyte esterase, nitrate, protein with 5-10 red cells, 100-200 white cells but no bacteria. No squamous cells seen. CARDIOVASCULAR: EKG shows sinus rhythm, rate 101, nonspecific ST wave abnormality. IMAGING: Chest x-ray - no acute disease. ASSESSMENT 1. Urinary tract infection, failing Macrodantin with chronic indwelling Yang catheter. 2. Hypokalemia and hypomagnesemia. Unit #: [id number] #: [id number] Patient: VALE LEES 3. Normocytic anemia: Patient underwent recent surgery in November and will obtain last CBC. 4. Degenerative joint disease. 5. Left leg deep venous thrombosis, on Coumadin. 6. Immobilization syndrome. PLANS 1. Correct electrolytes. 2. Change Yang catheter, continue Rocephin pending urine C and S. 3. Daily PT and INR. 4. Wound nurse to see. 5. Check Hemoccult and obtain last CBC from [facility] along with her old records. Dictated by Arlin Devine M.D. AML/df TD: 02/19/2017 05:42 JOB #: [id number] HISTORY AND PHYSICAL Page 1 of 1 X Arlin Devine MD X HISTORY AND PHYSICAL
--- NOTE | ~2017-02-18 | US85 ---
[facility] A Service [facility] RADIOLOGY TEXT RESULTS PATIENT: VALE LEES LOCATION: [facility] : [birth year] UNIT #: [id number] AGE: [address]: Denice Solis MD SEX: F ORDER DR: [id number] [facility] [address] [place], [place] [address] [id number] I MR#: [id number] Acc #: [id number] NAME: VALE LEES : 1930 SEX: F STUDY DATE/TIME: 02/19/2017 16:45 UNIT: [facility] ROOM: [facility] STUDY DESCRIPTION: LE Veins Unilat or Ltd Stdy Attending Physician: Denice Solis M.D. Ordering Physician: Denice Solis M.D. Primary Care Physician: Danika Milton M.D. MEDICAL IMAGING REPORT This report is preliminary unless electronic signature is present EXAM Left lower extremity DVT study dated 02/19/2017 COMPARISON None. HISTORY Left lower extremity pain and swelling. Evaluate for DVT. Symptoms have been going on for 2 months. TECHNIQUE Venous ultrasound examination of the left lower extremity was performed using grayscale, spectral Doppler and color flow Doppler imaging. FINDINGS The examination is negative. There is no evidence of left lower extremity deep venous thrombus from the groin to the lower calf. Visualized greater saphenous vein is also patent. IMPRESSION Negative examination. No evidence of left lower extremity deep venous thrombosis. Dictated by... Nora De Jesus M.D. THIS IS AN ELECTRONICALLY VERIFIED REPORT Nora De Jesus M.D. at 02/21/2017 11:44 AM [facility] A Service [facility] RADIOLOGY TEXT RESULTS PATIENT: VALE LEES LOCATION: [facility] : [birth year] UNIT #: [id number] AGE: [address]: Denice Solis MD SEX: F ORDER DR: JUAN/renita TD: 02/21/2017 08:50 JOB #: [id number] MEDICAL IMAGING REPORT Page 1 of 1 COPY
--- NOTE | ~2017-02-18 | EKG ---
PATIENT: VALE LEES UNIT #: [id number] Ventricular Rate: 101 BPM Atrial Rate: 101 BPM P-R Interval: 186 ms QRS Duration: 112 ms Q-T Interval: 390 ms QTC Calculation(Bezet): 505 ms P [place]: 47 degrees Calculated T [place]: 93 degrees Diagnosis Line: Sinus tachycardia Diagnosis Line: Abnormal QRS-T angle, consider primary T wave Diagnosis Line: abnormality Diagnosis Line: Abnormal ECG Diagnosis Line: Diagnosis Line: Confirmed by JAVIER KAPLAN MD ([id number]) on Diagnosis Line: 02/19/2017 11:04:08 AM INTERPRETING MDJacki HERRERA
[~2017-02-18 18:39] MED LIST changes: -ATIVAN0.5 MG PO; -CLARITIN10 M2 PO; -CLARITIN10 M3 PO; -COUMADIN4 MG PO; -DOK100 MG PO; -FEOSOL PO; -FERROUS GLUCON324 MG PO; -MULTI VITAMIN1 EACH PO; -NITROFURANTOIN100 M3 PO; -OMNICEF300 M1 PO; -OMNICEF300 MG PO; -ONDANSETRON HCL4 M1 PO; -PHENAZOPYRIDINE95 MG PO; -PROTONIX PO; -SENNA8.6 M1 PO; -TRAMADOL HCL50 M1 PO; -WARFARIN SODIUM2 M1 PO
[2017-02-18 21:08] LABS: BASOPHIL% 0.3 % (0-2.5); EOSINOPHIL# 0.5 X10e3 (0-0.7); EOSINOPHIL% 3.6 % (0.0-7.0); HEMATOCRIT 27.7 % (35.0-45.0); HEMOGLOBIN 9.2 gm/dL (12.0-16.0); LYMPHOCYTE# 0.7 X10e3 (1.0-3.5); LYMPHOCYTE% 4.8 % (17.0-45.0); MEAN CORPUSCULAR HEMOGLOBIN 31.1 PG (28-34); MEAN CORPUSCULAR HGB CONC 33.1 g/dL (30-36); MEAN PLATELET VOLUME 7.4 FL (6.5-11.5); MONOCYTE# 0.5 X10e3 (0-1.0); MONOCYTE% 3.4 % (3.0-12.0); NEUTROPHIL% 87.9 % (40-75); PLATELET COUNT 547 X10e3 (140-420); RED BLOOD COUNT 2.95 X10e (3.90-5.30); RED CELL DISTRIBUTION WIDTH 18.8 % (11.0-15.5); WHITE BLOOD COUNT 14.8 X10e3 (4.0-10.5)
[2017-02-18 21:11] LABS: DIFF IND NO
[2017-02-18 21:26] LABS: INR 2.3; PARTIAL THROMBOPLASTIN TIME 31.9 SECONDS (23.5-31.3); PROTHROMBIN TIME (PATIENT) 25.4 SECONDS (10.0-11.7)
[2017-02-18 21:34] LABS: POC - CKMB <1.0 ng/mL (0.0-7.9); POC - TROPONIN <0.05 ng/mL (<=0.05)
[2017-02-18 21:36] LABS: ALBUMIN SERUM 3.4 g/dL (3.5-5.0); BILIRUBIN, DIRECT 0.4 mg/dL (0.0-0.2); BILIRUBIN,INDIRECT 1.3 mg/dL (0.0-0.9); BILIRUBIN,TOTAL 1.7 mg/dL (0.2-2.0); BUN/CREATININE RATIO 17.5; CALCIUM SERUM 9.1 mg/dL (8.4-10.2); CREATININE SERUM 0.4 mg/dL (0.6-1.4); GLOM FILT RATE Estimated 93.7 mL/min (>60); MAGNESIUM 1.3 mg/dL (1.6-3.0); PHOSPHOROUS 2.7 mg/dL (2.5-4.6)
[2017-02-18 21:38] LABS: POTASSIUM 2.8 mmol/L (3.5-5.1)
[2017-02-18 22:13] LABS: URINE SOURCE CLEAN CATCH
[2017-02-18 22:26] LABS: URINE APPEARANCE CLOUDY; URINE BLOOD 1+ (NEG); URINE COLOR ORANGE; URINE GLUCOSE NEG (NEG); URINE KETONE 2+ (NEG); URINE LEUKOCYTE ESTERASE 3+ (NEG); URINE NITRATE POS (NEG); URINE PROTEIN 1+ (NEG); URINE SPECIFIC GRAVITY 1.013 (1.003-1.035)
[2017-02-18 22:28] LABS: CULTURE INDICATED? YES; URINE BACTERIA AUWI NEG (NEGATIVE); URINE SQUAMOUS EPITHELIAL CELL NONE SEEN /[HPF]; UWBCS1 AUWI 100-200 (0-5)
[2017-02-18 22:39] LABS: URINE BILIRUBIN NEG (NEG)
[2017-02-18 23:10] LABS: POC - CKMB <1.0 ng/mL (0.0-7.9); POC - TROPONIN <0.05 ng/mL (<=0.05)
[2017-02-19] MEDS ORDERED: ONDANSETRON HCL4 M1 PO (02:31)
[2017-02-19] MEDS ORDERED: NITROFURANTOIN100 M3 PO (02:32)
[2017-02-19] MEDS ORDERED: WARFARIN SODIUM2 M1 PO (02:33)
[2017-02-19] MEDS ORDERED: TRAMADOL HCL50 M1 PO (02:34)
[2017-02-19] MEDS ORDERED: PHENAZOPYRIDINE95 MG PO (02:35)
[2017-02-19] MEDS ORDERED: MULTI VITAMIN1 EACH PO (02:36)
[2017-02-19] MEDS ORDERED: CLARITIN10 M3 PO (02:37)
[2017-02-19] MEDS ORDERED: SENNA8.6 M1 PO (02:37)
[2017-02-19 05:04] LABS: BASOPHIL# 0.1 X10e3 (0-0.3); BASOPHIL% 0.4 % (0-2.5); EOSINOPHIL# 1.8 X10e3 (0-0.7); EOSINOPHIL% 14.6 % (0.0-7.0); HEMATOCRIT 22.9 % (35.0-45.0); HEMOGLOBIN 7.6 gm/dL (12.0-16.0); LYMPHOCYTE# 1.2 X10e3 (1.0-3.5); LYMPHOCYTE% 9.2 % (17.0-45.0); MEAN CELL VOLUME 94.7 FL (83-96); MEAN CORPUSCULAR HEMOGLOBIN 31.5 PG (28-34); MEAN CORPUSCULAR HGB CONC 33.3 g/dL (30-36); MEAN PLATELET VOLUME 7.4 FL (6.5-11.5); MONOCYTE# 0.5 X10e3 (0-1.0); MONOCYTE% 3.9 % (3.0-12.0); NEUTROPHIL% 71.9 % (40-75); PLATELET COUNT 446 X10e3 (140-420); RED BLOOD COUNT 2.42 X10e (3.90-5.30); RED CELL DISTRIBUTION WIDTH 18.2 % (11.0-15.5); WHITE BLOOD COUNT 12.5 X10e3 (4.0-10.5)
[2017-02-19 05:06] LABS: INR 2.2; PROTHROMBIN TIME (PATIENT) 24.1 SECONDS (10.0-11.7)
[2017-02-19 05:12] LABS: DIFF IND YES
[2017-02-19 05:26] LABS: CALCIUM SERUM 7.9 mg/dL (8.4-10.2); CREATININE SERUM 0.3 mg/dL (0.6-1.4); POTASSIUM 3.7 mmol/L (3.5-5.1)
[2017-02-19 05:38] LABS: ANISOCYTOSIS SL; HYPOCHROMIA SL; PLATELET ESTIMATE NORMAL (NORMAL)
[2017-02-19 05:39] LABS: SCHISTOCYTES PRESENT
[2017-02-19 16:51] LABS: IRON SERUM 28 ug/dL (28-170); TOTAL IRON BINDING CAPACITY 159 ug/dL (269-535); TRANSFERRIN 113 mg/dL (192-382); TRANSFERRIN SATURATION 18 % (20-50)
[2017-02-20 05:15] LABS: HEMATOCRIT 25.3 % (35.0-45.0); HEMOGLOBIN 8.4 gm/dL (12.0-16.0); MEAN CELL VOLUME 97.2 FL (83-96); MEAN CORPUSCULAR HEMOGLOBIN 32.2 PG (28-34); MEAN CORPUSCULAR HGB CONC 33.1 g/dL (30-36); MEAN PLATELET VOLUME 7.3 FL (6.5-11.5); RED BLOOD COUNT 2.61 X10e (3.90-5.30); RED CELL DISTRIBUTION WIDTH 17.6 % (11.0-15.5); WHITE BLOOD COUNT 9.6 X10e3 (4.0-10.5)
[2017-02-20 05:56] LABS: INR 2.5; PROTHROMBIN TIME (PATIENT) 27.6 SECONDS (10.0-11.7)
[2017-02-20 06:17] LABS: BUN/CREATININE RATIO 16.66; CALCIUM SERUM 8.6 mg/dL (8.4-10.2); CREATININE SERUM 0.3 mg/dL (0.6-1.4); MAGNESIUM 1.7 mg/dL (1.6-3.0); POTASSIUM 4.1 mmol/L (3.5-5.1)
[2017-02-20] MEDS ORDERED: OMNICEF300 M1 PO (13:48)
[2017-02-20] MEDS ORDERED: FERROUS GLUCON324 MG PO (13:49)
== END 2017-02-20 14:39 | disposition home or self-care (01) ==
LOC: CED 18:39 → C2A 02-19 02:00 → CEDOF 02-19 02:00 → C2A 02-19 02:38 → CEDOF 02-19 02:38 → CED 02-19 02:38 → CEDOF 02-19 08:07 → C2A 02-19 08:56
PROVIDERS: Emergency Medicine; Internal Medicine
DX: A41.50 Gram-negative sepsis, unspecified (principal); D50.9 Iron deficiency anemia, unspecified; L89.151 Pressure ulcer of sacral region, stage 1; D47.3 Essential (hemorrhagic) thrombocythemia; M85.812 Other specified disorders of bone density and structure, left shoulder; M85.811 Other specified disorders of bone density and structure, right shoulder; M41.9 Scoliosis, unspecified; I08.1 Rheumatic disorders of both mitral and tricuspid valves; Z97.8 Presence of other specified devices; E87.6 Hypokalemia; E83.42 Hypomagnesemia; Z86.718 Personal history of other venous thrombosis and embolism; Z79.01 Long term (current) use of anticoagulants; Z96.642 Presence of left artificial hip joint; Z96.652 Presence of left artificial knee joint; Z79.899 Other long term (current) drug therapy; M62.3 Immobility syndrome (paraplegic); Z88.2 Allergy status to sulfonamides
CPT/HCPCS: 36415; 71010; 80048; 80076; 81003; 82150; 82553; 82607; 83540; 83550; 83605; 83690; 83735; 84100; 84484; 85025; 85027; 85610; 85730; 87040; 87086; 87088; 87186; 93005; 93971; 96360; 96361; 96365; 96375; 96376; 99285; G0378; J0696; J3475

== ENCOUNTER 2017-04-12 01:29 | Emergency (ER) | payer OTHER ==
[~2017-04-12] VITALS: Ht 152.4 cm; Wt 59.0 kg
[~2017-04-12 01:29] MED LIST changes: +CLARITIN10 M3 PO; +FERROUS GLUCON324 MG PO; +MULTI VITAMIN1 EACH PO; +NITROFURANTOIN100 M3 PO; +OMNICEF300 M1 PO; +ONDANSETRON HCL4 M1 PO; +PHENAZOPYRIDINE95 MG PO; +SENNA8.6 M1 PO; +TRAMADOL HCL50 M1 PO; +WARFARIN SODIUM2 M1 PO
== END 2017-04-12 02:34 | disposition home or self-care (01) ==
LOC: CED 01:29
DX: K56.41 Fecal impaction (principal); I10 Essential (primary) hypertension; Z88.2 Allergy status to sulfonamides
CPT/HCPCS: 99284

== ENCOUNTER 2017-04-26 00:51 | Observation (INO) | payer OTHER ==
[~2017-04-26] VITALS: Ht 152.4 cm; Wt 47.2 kg
--- NOTE | ~2017-04-26 | CO ---
Unit #: [id number] #: [id number] Patient: VALE LEES [id number] [address] [place], [place] [address] [id number] I MR#: [id number] NAME: VALE LEES ROOM: 562 Age: 86 Sex: F Admission Date: 04/26/2017 : 1930 Attending Physician: Denice Solis M.D. Primary Care Physician: Danika Milton M.D. Consultation Date: 04/27/2017 CONSULTATION REPORT ADDITIONAL ATTENDING PHYSICIAN Dr. Joseph Bustos. PRIMARY CARE PHYSICIAN Dr. Danika Milton. REASON FOR CONSULTATION Nausea, vomiting, possible upper gastrointestinal bleed. HISTORY OF PRESENT ILLNESS Ms. Lees is a pleasant 86-year-old white female, who came to the emergency room because of nausea and vomiting. She had been having some upper respiratory tract symptoms prior to all this along with cough and sneezing. Apparently, she vomited yesterday and the vomitus was dark brown, not sure if there was any blood in it. She vomited over 4 or 5 hours multiple times. There was no history of fever nor any abdominal pain. There is no history of melena or hematochezia. Upon admission, she had sinus tachycardia and Coumadin toxicity with an INR of 8.9. She was given intravenous Protonix infusion and Zofran. Her last hemoglobin was 12.7 and her hemoglobin today is 10.8. PAST MEDICAL HISTORY Significant for history of hypertension, thrombocytosis, moderate mitral regurgitation and tricuspid regurgitation, and chronic immobility. The patient is on long-term Yang catheter. PAST SURGICAL HISTORY Included a left total knee replacement, appendectomy, and right femoral surgery with open reduction and internal fixation. ALLERGIES She is allergic to sulfonamides. MEDICATIONS At home included Zofran, Ativan, Coumadin, tramadol, docusate, and Claritin. FAMILY HISTORY None of colon, pancreatic cancer, or liver disease. SOCIAL HISTORY Lives at home with her son. Does not smoke or drink alcohol. Unit #: [id number] #: [id number] Patient: VALE LEES REVIEW OF SYSTEMS Detailed review of organ systems does not reveal any recent weight loss. No history of fever, chills, or rigors. No history of headache, seizures, chest pain, or syncope. No history of cough, expectoration, or hemoptysis. No history of dysuria, hematuria, or pyuria. No history of focal seizures or extremity weakness. No history of skin rash, aphthous ulcers in the mouth, or reactive arthritis. Rest of the review of organ systems is unremarkable. PHYSICAL EXAMINATION GENERAL: She is awake, alert, oriented, and appears quite anxious and pale. VITAL SIGNS: Stable with a temperature of 98.3, pulse is 92 per minute and regular, respiratory rate is 16, blood pressure is 129/53. She weighs 104 pounds and this is the lowest weight. Her baseline has been between 120 to 130 pounds in the past. HEENT: She has mjyb-tu-emceieez pallor. There being no icterus, lymphadenopathy, or peripheral edema. CARDIOVASCULAR: Normal heart sounds. No murmurs on auscultation. LUNGS: Reveal normal breath sounds. Good air entry. ABDOMEN: Soft and nontender. Liver and spleen are not palpable. Bowel sounds normal. DIAGNOSTIC STUDIES LABORATORY RESULTS: Shows a hemoglobin of 12.7 on admission, baseline now at 10.8, platelet count is 888. She has low iron and ferritin and low TIBC indicating anemia of chronic disease with or without iron deficiency. CLINICAL IMPRESSION The patient with anemia of chronic disease, anemia of possible underlying iron deficiency, possible nausea and vomiting may be related to medications or gastritis. A diagnostic endoscopy is in order and will be performed later today. The pros and cons of procedure, potential risks, and complications were discussed with the patient. We will also optimize INR before the endoscopy. Thank you very much for asking me to see this pleasant woman. I appreciate the consult. Dictated by... Ivette Angulo/chari TD: 04/27/2017 19:15 JOB #: [id number] CC: Denice Solis M.D. Unit #: [id number] #: [id number] Patient: VALE LEES CONSULTATION REPORT Page 1 of 1 X Kashif Fournier MD X CONSULTATION REPORT
--- NOTE | ~2017-04-26 | DS ---
Unit #: [id number] #: [id number] Patient: VALE LEES [id number] [address] [address] [id number] I MR#: [id number] NAME: VALE LEES ROOM: 562 Age: 86 Sex: F Admission Date: 04/26/2017 : 1930 Discharge Date: 04/27/2017 Attending Physician: Denice Solis M.D. Primary Care Physician: Danika Milton M.D. DISCHARGE SUMMARY PRINCIPAL DIAGNOSES 1. Mild acute upper gastrointestinal bleed secondary to esophagitis. 2. Supratherapeutic INR, status post vitamin K and two units of fresh frozen plasma, discharge INR 1.2. 3. Hypokalemia. 4. Iron deficiency anemia, chronic. 5. Chronic thrombocytosis, secondary to iron deficiency. 6. Gram-negative jorje urinary tract infection with pending urine culture. I will note urine culture is revealing only less than 10,000 colony forming units with a Gram-negative jorje. 7. Chronic indwelling Yang catheter. 8. Moderate mitral regurgitation. 9. Mild protein malnutrition. 10. Chronic immobility. 11. Anxiety. 12. Seasonal allergies. 13. History of deep venous thrombosis. CONSULTANTS Dr. Fournier, gastroenterology. PROCEDURES 1. EGD on 04/27/2017 with a grade 1 distal esophagitis with a single erosions, otherwise unremarkable. 2. Acute abdominal series on 04/26/2017 with no acute findings. Scoliosis noted. CLINICAL HISTORY AND HOSPITAL COURSE Ms. Lees is a really nice 86-year-old female who presents to the emergency department after complaints of new onset nausea and vomiting with brown emesis. She denied any coffee grounds or gross hematemesis. In the emergency department her hemoglobin was found to be stable at 11.5. As she had no further nausea or vomiting, was placed in observation for evaluation. The patient was given vitamin K to reverse her Coumadin. She had no further nausea and vomiting and again hemoglobin remained overall stable. Dr. Fournier was consulted and patient underwent EGD today with findings as noted. She is tolerating a diet with any further nausea or vomiting. Hemoglobin is stable at 10.8. I am going to discharge her home on PPI therapy. With regards to patient's supratherapeutic INR she did present with an INR of 8.9 hence her single dose of vitamin K. Ultimately in anticipation of Unit #: [id number] #: [id number] Patient: VALE LEES she was given 2 units of FFP and on the day of discharge her INR is 1.2. She is going to be given a single dose of Coumadin 8 mg today and then will resume a lower dose of Coumadin 2 mg daily with a followup INR as an outpatient. The patient was found to have chronic thrombocytosis and again she was iron deficient. I am going to place her on some iron supplementation and this can be followed up on an outpatient basis. Patient's other chronic conditions all remain stable. She will be discharged home today. Patient underwent urinalysis in the emergency department with questionable urinary tract infection. She was given Rocephin in the ER and otherwise antibiotics were held. Her urine culture is currently growing less than 10,000 colony forming units of Gram-negative jorje. She has been asymptomatic; however, with her chronic indwelling Yang, I am hesitant to not treat this culture, particularly given her high risk of sepsis. I am going to place her on Omnicef and I will followup urine culture on an outpatient basis. I will note, Yang catheter changed on 04/26/2017 in the ER. DISCHARGE CONDITION Stable. DISCHARGE STATUS Discharge to home with home health. DISCHARGE MEDICATIONS 1. Coumadin 2 mg p.o. daily. Goal INR is 2 to 3. 2. Zofran 4 mg p.o. q.6 hours p.r.n. for nausea and vomiting. 3. Claritin 10 mg daily p.r.n. for allergies. 4. Ativan 0.5 mg p.o. daily p.r.n. for anxiety. 5. Colace 100 mg b.i.d. 6. Tramadol 50 mg p.o. q.6 hours. 7. Omnicef 300 mg p.o. b.i.d. for six days. 8. Protonix 30 mg daily with one refill given. 9. Ferrous sulfate 325 mg p.o. daily with one refill given. DISCHARGE INSTRUCTIONS Patient is instructed to follow a regular diet. She can increase her activity as tolerated. FOLLOWUP The patient needs a followup INR done on 04/29/2017 with goal INR of 2-3. She will followup with her primary care provider, Danika Milton, in two weeks. Dictated by... Denice Solis M.D. SERGEI/jesusita TD: 04/29/2017 11:25 JOB #: [id number] Unit #: [id number] #: [id number] Patient: VALE LEES DISCHARGE SUMMARY Page 1 of 1 X Denice Solis MD X DISCHARGE SUMMARY
--- NOTE | ~2017-04-26 | HP ---
Unit #: [id number] #: [id number] Patient: VALE LEES [id number] [address] [place], [place] [address] [id number] I MR#: [id number] NAME: VALE LEES ROOM: 562 Age: 86 Sex: F Admission Date: 04/26/2017 : 1930 Attending Physician: Denice Solis M.D. Primary Care Physician: Danika Milton M.D. HISTORY AND PHYSICAL CHIEF COMPLAINT Nausea and vomiting. HISTORY OF PRESENT ILLNESS Ms. Lees is an 86-year-old, female who presents to the ER for above. Patient states she began having cough, sneezing, and increasing nasal congestion with drainage approximately Friday or of this week. There has been no associated fever and no known sick contacts. She took a single dose of Tylenol without any complications. History is somewhat vague, but it appears yesterday afternoon she had some coughing spells and then subsequently developed some nausea. Her son went to get her an Ensure, which she attempted to drink, and then subsequently developed vomiting. She states she vomited several times over the next 4-5 hours. Her first episode of emesis was brown, but she states that she drank coffee prior to this episode of emesis. She also tried to take her pills, but her pills came up with her vomit. She had several recurrent episodes of emesis, which made her concerned and she presented to the ER. She had no fever with this episode, no abdominal pain, and her bowels have been moving regularly with a bowel movement every other day. She denies any melena or hematochezia at home. In the emergency department upon presentation, patient was mildly tachycardic with a heart rate of 115 and blood pressure was elevated at 169/88, but, again, her pills would not stay down. Blood work in the emergency department revealed an elevated INR of 8.9. Given her complaints of brown emesis, there are concerned she had GI bleed. Patient was placed on a Protonix drip, given Zofran, 500 of normal saline. However, she has had no further nausea nor has she had any further emesis since presenting to the ER. In fact, she has already been drinking and eating this morning, has no pain, no nausea, no vomiting. Again, she denies any sick contacts and she also denies any coffee ground emesis or bright red emesis. Hemoglobin last evening was 12.7 and today it is 11.8. She has been admitted for presumed GI bleed plus or minus a viral gastroenteritis. PAST MEDICAL HISTORY 1. History of hypertension, no longer on medication. 2. Chronic indwelling Yang catheter. 3. Chronic immobility. 4. History of coccyx and sacral pressure ulcer. 5. Chronic thrombocytosis secondary to iron deficiency. 6. History of left leg DVT maintained on Coumadin. 7. Moderate mitral regurgitation. 8. Moderate tricuspid regurgitation. Unit #: [id number] #: [id number] Patient: VALE LEES PAST SURGICAL HISTORY Includes left total hip replacement, left total knee replacement, appendectomy, and right femur surgery requiring open reduction and internal fixation. ALLERGIES Include sulfa. MEDICATIONS Home medications include: Zofran 4 mg p.o. q.6 hours p.r.n. for nausea, vomiting; Ativan 0.5 mg p.o. p.r.n. for anxiety; Coumadin 4 mg Friday through and 2 mg Friday through Friday; tramadol 50 mg every 6 hours; docusate sodium 100 mg b.i.d.; and Claritin 10 mg p.o. daily p.r.n. for allergies. FAMILY HISTORY Reportedly negative. SOCIAL HISTORY Patient lives at home with her son. She is a lifelong nonsmoker. She does not drink and, again, she is chronically immobile and has indwelling Yang. REVIEW OF SYSTEMS Again, nausea, vomiting as noted. Two months ago, she may have had an episode of chest pain, but none with this current episode. She denies any shortness of breath. She denies any productive cough. She denies any fever or sore throat. She denies any recent weight change. She denies any dysuria or hematuria. She has not had any falls at home, but, again, she is essentially immobile. She has no new skin rashes. No new tingling, numbness of the extremities. Otherwise, 10-point review of systems is reviewed and is negative with the exception of HPI. PHYSICAL EXAMINATION VITAL SIGNS: Temperature 98.2, blood pressure 113/65, pulse rate 106, respiratory rate 20, oxygen saturation is 94% on room air. GENERAL: Patient is awake. She is alert. She is oriented x3 and appears younger than her stated age. HEENT: Pupils equally round and reactive to light bilaterally. Anicteric sclerae. No conjunctival pallor. Oropharynx with moist mucous membranes. No erythema or exudate. NECK: Supple. No lymphadenopathy. No thyromegaly. No JVD. HEART: Mildly tachycardic, but otherwise regular rhythm with a mild mitral murmur. Otherwise, no appreciable abnormalities. LUNGS: Clear to auscultation bilaterally. ABDOMEN: Soft. It is nontender. It is nondistended. Positive bowel sounds. No appreciable hepatosplenomegaly. EXTREMITIES: No cyanosis, clubbing, or edema. Pedal pulse 2/4. SKIN: Warm and moist without rash. I will note sacrum was not viewed. NEUROLOGIC: Cranial nerves, II-XII, are intact. She is significantly weak, particularly in the lower extremities, perhaps 3/5. MUSCULOSKELETAL: No significant joint abnormalities grossly. No joint erythema. PSYCHIATRIC: Alert and oriented x3. No suicidal or homicidal ideation. DIAGNOSTIC STUDIES LABORATORY: Again, blood work yesterday in the emergency department upon presentation reveals a white blood cell count of 11.5, hemoglobin 12.7, Unit #: [id number] #: [id number] Patient: VALE LEES platelet count of 827,000. This morning, white blood cell count is 11, hemoglobin 11.8, platelet count 723,000. Sodium level 132, potassium 3.4, chloride 97, bicarb 24, BUN less than 5, creatinine 0.4, glucose of 96, LFTs are all normal, albumin mildly low at 3.1. INR last evening was 8.9, this morning is elevated at 9.1; but she had not received her vitamin K prior to this blood test. A urinalysis reveals 3+ leukocyte esterase, 10-25 WBCs, 2+ bacteria with a moderate amount of squamous cells. IMAGING: Acute abdominal series done in the emergency department is normal. ASSESSMENT 1. Nausea, vomiting. Question viral gastroenteritis. 2. Questionable gastrointestinal bleed. I personally feel this is less likely given history and blood work values. 3. Supratherapeutic INR, status post 10 mg of vitamin K. 4. Hypokalemia. 5. Chronic thrombocytosis with history of iron deficiency anemia. 6. Questionable urinary tract infection, status post Rocephin x1 in the ER. 7. Chronic indwelling Yang catheter, which I will note was also changed in the ER. 8. Chronic immobility. 9. Moderate mitral regurgitation. 10. Mild protein malnutrition. PLAN 1. Will admit patient to observation status. 2. Nausea, vomiting has resolved. Patient, in fact, has already eaten breakfast this morning. I am going to change her back to a clear liquid diet and allow Dr. Fournier to evaluate her to determine whether she needs EGD. I will also check an H and H later this afternoon to ensure hemoglobin is remaining stable. She had been placed on a Protonix drip in the ER. I am going to transition this to Protonix 40 mg IV q.12 and monitor. 3. In regards to patient's supratherapeutic INR; again, she has received vitamin K. I will recheck INR in the morning. FFP was ordered this morning, but, again, I think her gastrointestinal bleed history is somewhat unclear and I am going to hold any FFP for now. 4. Will replace potassium orally. 5. Will check iron studies in regards to her chronic thrombocytosis. 6. Will follow up urine culture given I am unclear whether she truly has urinary tract infection. No further antibiotics for now and, again, Yang catheter was changed in the ER. 7. Continue home medications for other chronic conditions with the exception of Coumadin, which will currently be held. 8. I will have PT/OT evaluate, but, again, she is chronically immobile. Dictated by Denice Solis M.D. ESRGEI/ray TD: 04/26/2017 08:40 JOB #: [id number] Unit #: [id number] #: [id number] Patient: VALE LEES HISTORY AND PHYSICAL Page 1 of 1 X Denice Solis MD X HISTORY AND PHYSICAL
--- NOTE | ~2017-04-26 | OR ---
Unit #: [id number] #: [id number] Patient: VALE LEES [id number] [address] [address] [id number] I MR#: [id number] NAME: VALE LEES ROOM: 562 Date of Procedure: 04/27/2017 Admission Date: 04/26/2017 Surgeon: Kashif Fournier M.D. : 1930 Attending Physician: Denice Solis M.D. Primary Care Physician: Danika Milton M.D. OPERATIVE REPORT ATTENDING PHYSICIAN Dr. Joseph Bustos. PRIMARY CARE PHYSICIAN Dr. Danika Milton. PREOPERATIVE DIAGNOSES Nausea, vomiting, possible upper gastrointestinal bleed. PROCEDURE PERFORMED Upper gastrointestinal endoscopy. POSTOPERATIVE DIAGNOSES Grade 1 distal erosive esophagitis. There was a single erosion at the Z-line in the distal esophagus. Otherwise, examination was normal up to third part of duodenum. RECOMMENDATIONS The patient will be started on regular diet. Her warfarin can be resumed. We will repeat the CBC and BMP in the morning. Also, can discontinue IV Protonix and substitute with oral Protonix 40 mg p.o. daily. SEDATION USED Procedural sedation. A total of 3 mg of Versed was used throughout the procedure. DESCRIPTION OF PROCEDURE Following detailed explanation of potential risks and complications of an upper endoscopy, namely perforation, bleeding, and complication related to sedation, the patient was brought to GI lab and laid in the left lateral decubitus position. Lubricated tip of the Olympus video upper endoscope was passed through the bite block into the proximal esophagus under direct vision. The entire esophageal mucosa was examined and the patient was noted to have grade 1 distal erosive esophagitis with a single erosion noticed in the GE junction. There was no hiatus hernia present. The scope was then advanced into the gastric cavity and the latter was insufflated. Mucosa of the fundus, body, and antrum was examined and appeared unremarkable. Pylorus was intubated with visualization of the normal duodenal bulb and second and third part of the duodenum. Upon withdrawal and retroflexion; incisura, cardia, and greater curve was examined and no additional findings were noted. The scope was then Unit #: [id number] #: [id number] Patient: VALE LEES withdrawn in the distal esophagus. The entire esophageal mucosa was examined all the way up to pharynx. No additional findings were noted. The patient tolerated the procedure without any postprocedure complications. Dictated by.Ivette Tejada/chari TD: 04/27/2017 17:28 JOB #: [id number] CC: Ivette Velez M.D. Mary G. Reichert, M.D. OPERATIVE REPORT Page 1 of 1 X Kashif Fournier MD X PROCEDURE OPERATIVE NOTE
--- NOTE | ~2017-04-26 | CR2 ---
[facility] A Service [facility] RADIOLOGY TEXT RESULTS PATIENT: VALE LEES LOCATION: [facility] : [birth year] UNIT #: [id number] AGE: [address]: Denice Solis MD SEX: F ORDER DR: [id number] [id number] [place], [place] [address] [id number] MR#: [id number] Acc #: [id number] NAME: VALE LEES : 1930 SEX: F STUDY DATE/TIME: 04/26/2017 1:52 UNIT: [facility] ROOM: [facility] STUDY DESCRIPTION: CR Abdomen Acute Series Attending Physician: Denice Solis M.D. Ordering Physician: Bhavesh Shaikh M.D. Primary Care Physician: aDnika Milton M.D. MEDICAL IMAGING REPORT This report is preliminary unless electronic signature is present EXAM Acute abdominal series. INDICATIONS Cough, nausea vomiting for the past 2 days. PROCEDURE Frontal view chest, supine and upright views of the abdomen and pelvis. COMPARISON None. FINDINGS No dense consolidation or free air. Nonobstructed bowel gas pattern. Multilevel degenerative change. Dextrocurvature of the lower thoracic spine and levocurvature of the lumbar spine. IMPRESSION 1. No acute findings. 2. Scoliotic curvature. Dictated by... Jesus Alberto Moore M.D. THIS IS AN ELECTRONICALLY VERIFIED REPORT Jesus Alberto Moore M.D. at 04/26/2017 10:04 PM DEVI/jarad TD: 04/26/2017 20:05 JOB #: [id number] MEDICAL IMAGING REPORT [facility] A Service [facility] RADIOLOGY TEXT RESULTS PATIENT: VALE LEES LOCATION: [facility] : 28 UNIT #: [id number] AGE: [address]: Denice Solis MD SEX: F ORDER DR: Page 1 of 1 COPY
[2017-04-26 02:39] LABS: BASOPHIL# 0.1 X10e3 (0-0.3); BASOPHIL% 1.2 % (0-2.5); DIFF IND NO; EOSINOPHIL# 0.6 X10e3 (0-0.7); HEMATOCRIT 38.5 % (35.0-45.0); HEMOGLOBIN 12.7 gm/dL (12.0-16.0); LYMPHOCYTE# 1.5 X10e3 (1.0-3.5); LYMPHOCYTE% 13.3 % (17.0-45.0); MEAN CELL VOLUME 87.3 FL (83-96); MEAN CORPUSCULAR HEMOGLOBIN 28.7 PG (28-34); MEAN CORPUSCULAR HGB CONC 32.9 g/dL (30-36); MEAN PLATELET VOLUME 7.4 FL (6.5-11.5); MONOCYTE# 0.8 X10e3 (0-1.0); MONOCYTE% 7.1 % (3.0-12.0); NEUTROPHIL# 8.5 X10e3 (1.5-7.1); NEUTROPHIL% 73.4 % (40-75); PLATELET COUNT 827 X10e3 (140-420); RED BLOOD COUNT 4.41 X10e (3.90-5.30); WHITE BLOOD COUNT 11.5 X10e3 (4.0-10.5)
[2017-04-26 03:09] LABS: ACETAMINOPHEN <10 ug/mL; ALBUMIN SERUM 3.1 g/dL (3.5-5.0); ALKALINE PHOSPHATASE 65 U/L (32-92); ALT (SGPT) 13 U/L (10-40); AMYLASE 6 U/L (0-46); AST (SGOT) 24 U/L (10-42); BILIRUBIN, DIRECT 0.1 mg/dL (0.0-0.2); BILIRUBIN,INDIRECT 0.1 mg/dL (0.0-0.9); BILIRUBIN,TOTAL 0.2 mg/dL (0.2-2.0); BLOOD UREA NITROGEN <5 mg/dL (9-23); CALCIUM SERUM 9.4 mg/dL (8.4-10.2); CARBON DIOXIDE 24 mmol/L (22-31); CHLORIDE 97 mmol/L (100-111); CREATININE SERUM 0.4 mg/dL (0.6-1.4); GLOM FILT RATE Estimated 93.7 mL/min (>60); GLUCOSE FASTING 96 mg/dL (70-110); LIPASE 24 U/L (22-51); POTASSIUM 3.4 mmol/L (3.5-5.1); PROTEIN TOTAL SERUM 6.6 g/dL (6.0-8.3); SODIUM 132 mmol/L (135-145)
[2017-04-26 03:10] LABS: PROTHROMBIN TIME (PATIENT) 97.4 SECONDS (10.0-11.7)
[2017-04-26 03:11] LABS: INR 8.9; PARTIAL THROMBOPLASTIN TIME 48.5 SECONDS (23.5-31.3)
[2017-04-26 03:15] LABS: URINE SOURCE CATH
[2017-04-26 03:20] LABS: URINE APPEARANCE CLEAR; URINE BILIRUBIN NEG (NEG); URINE BLOOD NEG (NEG); URINE COLOR YELLOW; URINE GLUCOSE NEG (NEG); URINE KETONE 1+ (NEG); URINE LEUKOCYTE ESTERASE 3+ (NEG); URINE NITRATE NEG (NEG); URINE PROTEIN NEG (NEG); URINE SPECIFIC GRAVITY 1.006 (1.003-1.035); URINE UROBILINOGEN 0.2 MG/DL (NEG)
[2017-04-26 03:22] LABS: CULTURE INDICATED? YES; URBCS1 AUWI 0-2 /[HPF] (0-2); URINE BACTERIA AUWI 2+ (NEGATIVE); URINE SQUAMOUS EPITHELIAL CELL MOD /[HPF]
[2017-04-26] MEDS ORDERED: ONDANSETRON HCL4 M1 PO (04:25)
[2017-04-26] MEDS ORDERED: ATIVAN0.5 MG PO (04:29)
[2017-04-26] MEDS ORDERED: COUMADIN4 MG PO (04:30)
[2017-04-26] MEDS ORDERED: TRAMADOL HCL50 M1 PO (04:31)
[2017-04-26] MEDS ORDERED: DOK100 MG PO (04:32)
[2017-04-26] MEDS ORDERED: CLARITIN10 M2 PO (04:33)
[2017-04-26 07:06] LABS: BASOPHIL# 0.2 X10e3 (0-0.3); BASOPHIL% 1.6 % (0-2.5); EOSINOPHIL# 0.5 X10e3 (0-0.7); EOSINOPHIL% 4.8 % (0.0-7.0); HEMOGLOBIN 11.8 gm/dL (12.0-16.0); LYMPHOCYTE# 1.7 X10e3 (1.0-3.5); LYMPHOCYTE% 15.5 % (17.0-45.0); MEAN CELL VOLUME 86.1 FL (83-96); MEAN CORPUSCULAR HEMOGLOBIN 29.8 PG (28-34); MEAN CORPUSCULAR HGB CONC 34.6 g/dL (30-36); MEAN PLATELET VOLUME 7.3 FL (6.5-11.5); MONOCYTE# 0.6 X10e3 (0-1.0); MONOCYTE% 5.8 % (3.0-12.0); NEUTROPHIL# 7.9 X10e3 (1.5-7.1); NEUTROPHIL% 72.3 % (40-75); PLATELET COUNT 723 X10e3 (140-420); RED BLOOD COUNT 3.95 X10e (3.90-5.30); RED CELL DISTRIBUTION WIDTH 14.9 % (11.0-15.5)
[2017-04-26 07:14] LABS: DIFF IND NO
[2017-04-26 07:28] LABS: PROTHROMBIN TIME (PATIENT) 99.5 SECONDS (10.0-11.7)
[2017-04-26 07:47] LABS: INR 9.1
[2017-04-26 07:50] LABS: CARBON DIOXIDE 20 mmol/L (22-31); CHLORIDE 101 mmol/L (100-111); CREATININE SERUM 0.4 mg/dL (0.6-1.4); GLOM FILT RATE Estimated 93.7 mL/min (>60); GLUCOSE FASTING 80 mg/dL (70-110); POTASSIUM 3.2 mmol/L (3.5-5.1); SODIUM 133 mmol/L (135-145)
[2017-04-26 07:56] LABS: BLOOD UREA NITROGEN <5 mg/dL (9-23)
[2017-04-26 08:48] LABS: MAGNESIUM 1.5 mg/dL (1.6-3.0)
[2017-04-26 14:22] LABS: HEMATOCRIT 33.6 % (35.0-45.0); HEMOGLOBIN 11.4 gm/dL (12.0-16.0)
[2017-04-27 05:23] LABS: HEMATOCRIT 31.9 % (35.0-45.0); HEMOGLOBIN 10.8 gm/dL (12.0-16.0); MEAN CELL VOLUME 86.5 FL (83-96); MEAN CORPUSCULAR HEMOGLOBIN 29.4 PG (28-34); MEAN PLATELET VOLUME 7.4 FL (6.5-11.5); RED BLOOD COUNT 3.68 X10e (3.90-5.30); RED CELL DISTRIBUTION WIDTH 15.5 % (11.0-15.5); WHITE BLOOD COUNT 6.7 X10e3 (4.0-10.5)
[2017-04-27 05:27] LABS: INR 1.2
[2017-04-27 05:28] LABS: PROTHROMBIN TIME (PATIENT) 12.8 SECONDS (10.0-11.7)
[2017-04-27 06:28] LABS: CALCIUM SERUM 9.5 mg/dL (8.4-10.2); CARBON DIOXIDE 24 mmol/L (22-31); CHLORIDE 107 mmol/L (100-111); CREATININE SERUM 0.5 mg/dL (0.6-1.4); GLUCOSE FASTING 67 mg/dL (70-110); POTASSIUM 3.9 mmol/L (3.5-5.1); SODIUM 138 mmol/L (135-145)
[2017-04-27 06:31] LABS: BLOOD UREA NITROGEN <5 mg/dL (9-23)
[2017-04-27 08:24] LABS: INR 1.2; PROTHROMBIN TIME (PATIENT) 12.7 SECONDS (10.0-11.7)
[2017-04-27] MEDS ORDERED: PROTONIX PO (13:03)
[2017-04-27] MEDS ORDERED: OMNICEF300 MG PO (13:03)
[2017-04-27] MEDS ORDERED: FEOSOL PO (13:05)
== END 2017-04-27 16:11 | disposition home or self-care (01) ==
LOC: CED 00:51 → C5B 03:48 → CEDOF 03:48 → C5B 05:34
PROVIDERS: Emergency Medicine; Internal Medicine; Internal Medicine Gastroenterology
DX: K22.11 Ulcer of esophagus with bleeding (principal)
CPT/HCPCS: 36415; 36430; 74022; 80048; 80076; 81003; 82150; 83540; 83550; 83690; 83735; 85014; 85018; 85025; 85027; 85610; 85730; 86850; 86900; 86901; 87086; 87088; 87186; 96361; 96365; 96374; 96375; 96376; 99285; C9113; G0378; G0480; J0696; J2250; J2405; J3430; P9059

== ENCOUNTER 2017-05-11 16:48 | Emergency (ER) | payer OTHER ==
[~2017-05-11] VITALS: Ht 152.4 cm; Wt 59.0 kg
[~2017-05-11 16:48] MED LIST changes: +ATIVAN0.5 MG PO; +CLARITIN10 M2 PO; +COUMADIN4 MG PO; +DOK100 MG PO; +FEOSOL PO; +OMNICEF300 MG PO; +PROTONIX PO
== END 2017-05-11 18:17 | disposition left against medical advice (07) ==
LOC: CED 16:48
DX: Z53.21 Procedure and treatment not carried out due to patient leaving prior to being seen by health care provider (principal)